=== PATIENT | male | born 1955 | race Caucasian/White ===

== ENCOUNTER 2020-01-18 15:21 | Outpatient (REF) | payer MEDICARE, SELFPAY ==
[2020-01-18 16:33] LABS: Prostate Specific Antigen 0.18 ng/mL (<0.05-4.0)
== END 2020-01-18 15:22 | disposition home or self-care (01) ==
LOC: HO.LAB 15:21
PROVIDERS: PCP Internal Medicine; Visit Provider Urology
DX: C61 Malignant neoplasm of prostate (principal); Z12.5 Encounter for screening for malignant neoplasm of prostate
CPT/HCPCS: 84153

== ENCOUNTER 2020-05-17 13:23 | Outpatient (REF) | payer MEDICARE, SELFPAY ==
[2020-05-17 15:07] LABS: Prostate Specific Antigen 0.27 ng/mL (<0.05-4.0)
== END 2020-05-17 13:24 | disposition home or self-care (01) ==
LOC: HO.LAB 13:23
PROVIDERS: PCP Internal Medicine; Visit Provider Urology
DX: Z12.5 Encounter for screening for malignant neoplasm of prostate (principal); C61 Malignant neoplasm of prostate
CPT/HCPCS: 36415; 84153

== ENCOUNTER 2020-07-11 06:19 | Outpatient (REF) | payer MEDICARE, SELFPAY ==
[2020-07-11 07:33] LABS: MANUAL DIFF FLAG NO
[2020-07-11 07:42] LABS: Basophils Absolute Auto 0.1 X10*3/uL (0.0-0.2); Basophils Percent Auto 0.9 % (0-2); Eosinophils Absolute Auto 0.2 X10*3/uL (0.0-0.4); Eosinophils Percent Auto 3.6 % (0-4); Hematocrit 44.6 % (42-52); Hemoglobin 14.5 g/dl (14.0-18.0); Imm Gran Abs Auto 0.02 X10*3/uL (0.00-0.03); Imm Gran Pct Auto 0.3 % (0.0-0.4); Lymphocytes Absolute Auto 2.2 X10*3/uL (1.2-4.9); Lymphocytes Percent Auto 34.3 % (20-40); Mean Corpuscular HGB Conc 32.5 g/dl (31.0-36.0); Mean Corpuscular Hemoglobin 30.7 pg (27.0-33.0); Mean Corpuscular Volume 94.5 fL (80-98); Mean Platelet Volume 10.1 fL (9.4-12.4); Monocytes Absolute Auto 0.5 X10*3/uL (0.1-1.2); Monocytes Percent Auto 8.1 % (2-11); Neutrophils Absolute Auto 3.3 X10*3/uL (2.0-8.3); Neutrophils Percent Auto 52.8 % (45-73); Platelet Count 230 X10*3/uL (160-400); Red Blood Count 4.72 X10*6/uL (4.60-5.80); White Blood Count 6.3 X10*3/uL (4.8-10.8)
[2020-07-11 07:55] LABS: Alanine Aminotransferase 21 U/L (0-40); Albumin Level 4.1 g/dL (3.5-5.0); Alkaline Phosphatase 65 U/L (39-117); Anion Gap 10 (12-20); Aspartate Amino Transferase 17 U/L (5-37); Bilirubin Total 0.5 mg/dL (0.0-1.0); Blood Urea Nitrogen 18 mg/dL (9-16); Calcium 9.4 mg/dL (8.4-10.2); Carbon Dioxide 28 mmol/L (22-29); Chloride 106 mmol/L (96-108); Cholesterol 232 mg/dL; Estimated Glomerular Filt Rate > 60; Glucose Fasting 99 mg/dL (60-99); HDL Cholesterol 58 mg/dL; LDL Cholesterol Calculated 157 mg/dl; Potassium 4.3 mmol/L (3.3-5.1); Sodium 140 mmol/L (135-145); Total Protein 6.3 g/dL (6.5-8.0); Triglycerides 85 mg/dL
== END 2020-07-11 06:20 | disposition home or self-care (01) ==
LOC: HO.LAB 06:19
PROVIDERS: PCP Internal Medicine; Visit Provider Internal Medicine
DX: E78.00 Pure hypercholesterolemia, unspecified (principal); Z82.49 Family history of ischemic heart disease and other diseases of the circulatory system
CPT/HCPCS: 36415; 80053; 80061; 85025

== ENCOUNTER 2020-08-25 11:05 | Outpatient (REF) | payer MEDICARE, SELFPAY ==
[2020-08-25 13:06] LABS: Prostate Specific Antigen 0.31 ng/mL (<0.05-4.0)
== END 2020-08-25 11:06 | disposition home or self-care (01) ==
LOC: HO.LAB 11:05
PROVIDERS: PCP Internal Medicine; Visit Provider Urology
DX: C61 Malignant neoplasm of prostate (principal)
CPT/HCPCS: 36415; 84153

== ENCOUNTER 2021-03-09 15:08 | Outpatient (REF) | payer MEDICARE, SELFPAY ==
[2021-03-09 16:05] LABS: Prostate Specific Antigen 0.35 ng/mL (<0.05-4.0)
== END 2021-03-09 15:09 | disposition home or self-care (01) ==
LOC: HO.LAB 15:08
PROVIDERS: PCP Internal Medicine; Visit Provider Urology
DX: Z12.5 Encounter for screening for malignant neoplasm of prostate (principal); C61 Malignant neoplasm of prostate
CPT/HCPCS: 36415; 84153

== ENCOUNTER 2021-09-26 14:36 | Outpatient (REF) | payer MEDICARE, SELFPAY ==
[2021-09-26 16:31] LABS: Prostate Specific Antigen 0.44 ng/mL (<0.05-4.0)
== END 2021-09-26 14:37 | disposition home or self-care (01) ==
LOC: HO.LAB 14:36
PROVIDERS: PCP Internal Medicine; Visit Provider Urology
DX: Z12.5 Encounter for screening for malignant neoplasm of prostate (principal); C61 Malignant neoplasm of prostate
CPT/HCPCS: 36415; 84153

== ENCOUNTER 2022-04-05 13:37 | Outpatient (REF) | payer MEDICARE, SELFPAY ==
[2022-04-05 15:46] LABS: Prostate Specific Antigen 0.63 ng/mL (<0.05-4.0)
== END 2022-04-05 13:38 | disposition home or self-care (01) ==
LOC: HO.LAB 13:37
PROVIDERS: PCP Internal Medicine; Visit Provider Urology
DX: Z12.5 Encounter for screening for malignant neoplasm of prostate (principal); C61 Malignant neoplasm of prostate
CPT/HCPCS: 36415; 84153

== ENCOUNTER 2022-07-02 15:36 | Outpatient (REF) | payer MEDICARE, SELFPAY ==
[2022-07-02 17:44] LABS: Prostate Specific Antigen 0.75 ng/mL (<0.05-4.0)
== END 2022-07-02 15:37 | disposition home or self-care (01) ==
LOC: HO.LAB 15:36
PROVIDERS: PCP Internal Medicine; Visit Provider Physician Assistant Surgical
DX: C61 Malignant neoplasm of prostate (principal); Z12.5 Encounter for screening for malignant neoplasm of prostate
CPT/HCPCS: 36415; 84153

== ENCOUNTER 2023-05-15 15:13 | Outpatient (REF) | payer MEDICARE, SELFPAY ==
[2023-05-15 16:25] LABS: Prostate Specific Antigen < 0.10 ng/mL (<0.05-4.0)
== END 2023-05-15 15:14 | disposition home or self-care (01) ==
LOC: HO.LAB 15:13
PROVIDERS: Visit Provider Physician Assistant
DX: Z12.5 Encounter for screening for malignant neoplasm of prostate (principal); C61 Malignant neoplasm of prostate
CPT/HCPCS: 36415; 84153

== ENCOUNTER 2023-09-16 14:33 | Outpatient (REF) | payer MEDICARE, SELFPAY ==
[2023-09-20 15:52] LABS: Testosterone, Total 215 ng/dL (250-1100)
== END 2023-09-16 14:34 | disposition home or self-care (01) ==
LOC: HO.LAB 14:33
PROVIDERS: PCP Internal Medicine; Visit Provider Urology
DX: C61 Malignant neoplasm of prostate (principal)
CPT/HCPCS: 36415; 84403

== ENCOUNTER 2024-03-12 15:22 | Outpatient (REF) | payer MEDICARE, SELFPAY ==
[2024-03-12 17:03] LABS: Prostate Specific Antigen < 0.10 ng/mL (<0.05-4.0)
[2024-03-18 12:08] LABS: Testosterone, Total 374 ng/dL (250-1100)
== END 2024-03-12 15:23 | disposition home or self-care (01) ==
LOC: HO.LAB 15:22
PROVIDERS: PCP Internal Medicine; Visit Provider Urology
DX: C61 Malignant neoplasm of prostate (principal)
CPT/HCPCS: 36415; 84153; 84403

== ENCOUNTER 2024-04-21 08:08 | Day surgery (SDC) | payer MEDICARE, SELFPAY ==
[2024-04-21 09:07] VITALS: BP 163/86; PULSE 65; RESP 14; TEMP 36.9; O2SAT 99; BMI 24.1
[2024-04-21] MEDS: Lactated Ringers 1,000 ML 80 ML IVCONT (09:19)
--- NOTE | 2024-04-21 09:38 | P.CONAN_ITS ---
[facility] Past Medical History Medical History Prostate cancer Surgical History Surgical History History of arthroscopic knee surgery Hx of hernia repair History of prostate surgery H/O colonoscopy History of Problems with Anesthesia: No Social History Social History Are you a primary career guidance technician to a significant other at home: No Patient Tobacco Use Status: Former Tobacco user Use of substances other than those prescribed or required for medical reasons: Yes Substance Use Frequency: Daily Have you been hit, kicked, punched, or otherwise hurt by someone within the past year? If so, by whom?: No Are you DNR?: No Advance Directives: No Advance Directives Information Provided: Yes Recently lost weight without trying: No Nutrition Risks: No Nutritional Risk Poor oral hygiene: No Meds Allergies Allergy/AdvReac Type Severity Reaction Status Date / Time cefoxitin Allergy Hives Verified 04/21/24 09:01 levofloxacin [From Levaquin] Allergy Hives Verified 04/21/24 09:01 Active Medications: Current Medications Lactated Ringer's (Lr) 1,000 mls @ 80 mls/hr IVCONT .[id number] KAIT Last Admin: 04/21/24 09:19 Dose: 80 mls/hr Sodium Biphosphate/Sodium Phosphate (Sodium Phosphate,[place]-Dibasic 133 Ml Enema) 133 ml MI ONCE PRN PRN Reason: Poor Colonoscopy Prep Results Home Medications ?Medication ?Instructions ?Recorded ?Confirmed ?Last Taken ?Type No Known Home Meds 04/20/24 04/20/24 Unknown History Exam Height,Weight and Vital Signs: Height 5 ft 10 in Weight 76.204 kg Last Vital Signs Temp 98.5 F 04/21/24 09:07 Pulse 65 04/21/24 09:07 Resp 14 04/21/24 09:07 BP 163/86 H 04/21/24 09:07 Pulse Ox 99 04/21/24 09:07 O2 Del Method Room Air 04/21/24 09:07 Airway Mallampati Class: III TM Dist: >3cm Neck ROM: Full Loose/Missing/Broken Teeth: No Heart: RRR Lungs: CTA Assessment and Plan Assessment Anesthesia Assessment: Anesthesia Plan Discussed and Chart Reviewed Final Anesthetic Review History of Problems with Anesthesia: No NPO: Yes ASA Class: II Final Preanesthetic Review: Meds/Allgs Chart Reviewed, Consent Obtained/Reviewed and Anes Risks/Benef Reviewed Patient Risk: Low Procedure Risk: Low Anesthetic Plan Anesthetic Plan: MAC: Disposition: Standard PACU
[2024-04-21 10:33] VITALS: BP 148/83; PULSE 53; RESP 18; TEMP 36.2; O2SAT 100
--- NOTE | 2024-04-21 10:42 | P.BOP_ITS ---
Brief Operative Note Date of Service: 04/21/24 Pre-op diagnosis: Screening, diarrhea Post-op diagnosis: other (R/O microscopic colitis, Diverticlosis, Radiation proctitis with Telangiectasias) Procedure: Colonoscopy to the cecum and TI with biopsies Surgeon: Flip Rahman MD Anesthesia: MAC Was an Public Service Representative used for this Procedure?: No Estimated blood loss (mL): 2.0 Pathology: other (A. Ascending colon B. Terminal ileum C. Descending colon) Condition: stable Disposition: PACU
[2024-04-21 10:48] VITALS: BP 154/89; PULSE 53; RESP 18; TEMP 36.1; O2SAT 100
[2024-04-21 11:02] VITALS: BP 157/79; PULSE 53; RESP 18; TEMP 36.1; O2SAT 100
--- NOTE | 2024-04-21 11:53 | OP_ITS ---
DATE OF SERVICE: 04/21/2024 SURGEON: Flip Rahman MD INDICATIONS: The patient presents for evaluation of colorectal cancer screening, personal history of tubular adenomas, and change in bowel habits with associated diarrhea. Full consent has been obtained from him for this, including risks of bleeding and perforation. PREOPERATIVE DIAGNOSIS: POSTOPERATIVE DIAGNOSIS: PROCEDURE PERFORMED: Colonoscopy to the cecum and terminal ileum with biopsies. ESTIMATED BLOOD LOSS: COMPLICATIONS: ANESTHESIA: Medication use, monitored anesthesia care. ASSISTANTS: SPECIMENS: PREOPERATIVE DIAGNOSES: Colorectal cancer screening, personal history of tubular adenoma of the colon, and change in bowel habits with associated diarrhea. POSTOPERATIVE DIAGNOSES: Colorectal cancer screening, personal history of tubular adenoma of the colon, change in bowel habits with associated diarrhea, diverticulosis, internal hemorrhoids, rule out microscopic colitis. DESCRIPTION OF PROCEDURE: The patient was placed in the left lateral decubitus position. The digital rectal exam revealed no abnormalities. The [employer] video pediatric colonoscope was entered into the rectum and advanced easily to the cecum. Once in the cecum, I did identify normal-appearing cecal pouch with appendiceal orifice and a normal-appearing ileocecal valve. The terminal ileum was cannulated and appeared normal. Biopsies were obtained. The scope was withdrawn back in the colon. The entire cecum and ileocecal valve appeared normal, as did the appendiceal orifice. The scope was slowly withdrawn assessing all mucosal surfaces carefully. Preparation was excellent. I did not visualize any sign of colitis, polyps, nor angiodysplasias. Random biopsies were obtained in the ascending and descending colon. There was a moderate amount of sigmoid diverticulosis. In the rectum, there were several nonbleeding telangiectasias consistent with his previous radiation treatments. There was no sign of any active proctitis, although some of the telangiectasias were friable when touched by the scope. The scope was retroflexed visualizing internal hemorrhoids and the telangiectasias but no other pathology. The scope was straightened and withdrawn from the patient. He tolerated the procedure well and was returned to the recovery area in stable condition. IMPRESSION: 1. Rule out microscopic colitis. 2. Radiation proctitis with associated rectal telangiectasias. 3. Internal hemorrhoids. 4. Diverticulosis. PLAN: The results of the biopsies will be checked. Given the previous history of tubular adenoma, I would recommend a followup coloscopy in 5 years. He was advised not to use any aspirin or NSAIDs for at least 2 weeks. When I saw him last week in the office I had recommended a trial of Imodium and I did remind him to do that to see if that gives him some relief of the loose stools. He does report that things are definitely better than when he first had the radiation treatments and I suspect that as time goes on this will hopefully continue to improve. He wii continue Imodium either daily or as needed, and he will then see me in followup. He will call me prior to that if he has any problems. This has been discussed with his . MD ROMEL Garcia/CASSI / [id number] MTDD
== END 2024-04-21 11:20 | disposition home or self-care (01) ==
PROVIDERS: PCP Internal Medicine; Visit Provider Internal Medicine
PROC: 0DJD8ZZ Inspection of Lower Intestinal Tract, Via Natural or Artificial Opening Endoscopic (ICD-10-PCS; CPT 45378; principal; 2024-04-21 09:30)
DX: Z12.11 Encounter for screening for malignant neoplasm of colon (principal); Z86.0101 Personal history of adenomatous and serrated colon polyps; R19.7 Diarrhea, unspecified; K57.30 Diverticulosis of large intestine without perforation or abscess without bleeding; K64.8 Other hemorrhoids; K62.7 Radiation proctitis; Z85.46 Personal history of malignant neoplasm of prostate; Z90.79 Acquired absence of other genital organ(s); Z88.1 Allergy status to other antibiotic agents; Z87.891 Personal history of nicotine dependence; Z98.890 Other specified postprocedural states
CPT/HCPCS: 45380; 88305; J2003; J2704

== ENCOUNTER 2024-09-20 15:20 | Outpatient (REF) | payer MEDICARE, SELFPAY ==
--- OUTSIDE RECORDS SUMMARY | 2024-09-20 15:53 | XMS_ITS | Patient Health Record ---
Author Organization [facility] Address [address] [place] [address] Care Team Providers Care Stage Producer Name Role Phone Mk (RETIRED) Jose IVLLELA Primary Care Provide Flip Walters [phone] Allergies Allergen (clinical drug ingredient) Drug/Non Drug Allergy documented on EMR Reaction Allergy Type Onset Date Status cefoxitin cefOXitin hives Drug Allergy Active Levaquin hives Drug Allergy Active Results Component Value Reference Range Notes Pathology (Not yet reviewed by provider) Interpretation: Performing Lab:[facility], [address] [place] [id number] Notes/Report: Reason For Referral No Information Immunizations Vaccine Route Administration Date Status Comme nts Influenza Unknown 04/10/2018 Refused Influenza Unknown 04/14/2024 Refused Social History Alcohol Screen Question Answer Notes Did you have a drink contain ing alcohol in the past year? Yes How often did you have a dri nk containing alcohol in the past year? Monthly or less (1 point) How many drinks did you have on a typical day when you were drinking in the past year? 1 or 2 drinks (0 point) How often did you have 6 or more drinks on one occasion in the past year? Never (0 point) Points 1 Interpretation Negative Section Notes: Nonsmoker > 10 yrs; occasion al alcohol Nonsmoker > 10 yrs; occasion al alcohol Nonsmoker > 10 yrs; occasion al alcohol Problems Problem Type SNOMED Code ICD Code Onset Dates Problem Status W/U Status Risk Notes Problem 874454721 Encounter for screening for malignant neoplasm of colon (Z12.11) Active confirmed Problem Diarrhea (R19.7) Active confirmed Problem Diverticular disease of colon (583073252) Diverticulosis of large intestine without perforation or abscess without bleeding (K57.30) Active confirmed Problem 998213128 Hx of adenomatou s colonic polyps (Z86.010) Active confirmed Problem 073313548585515 Pre-procedural examination (Z01.818) Active confirmed Vital Signs Temperature 97.3 degrees Fahrenheit 04/14/2024 Height 69.50 in 04/14/2024 Weight 175 lbs 04/14/2024 BMI 25.47 kg/m2 04/14/2024 Encounters Encounter Location Date Provider Diagnosis [facility] [place] [address] [place] [id number] 04/21/2024 Flip Rahman Bowel habit changes R19.4 ; Diverticulosis of large intestine without perforation or abscess without bleeding K57.30 and Other hemorrhoids K64.8 [facility] [address] [place] [address] 04/14/2024 Flip Rahman Diarrhea R19.7 ; Hx of adenomatous colonic polyps Z86.010 and Encounter for screening for malignant neoplasm of colon Z12.11 Assessments Encounter Date Diagnosis (ICD Code) Assessment Notes Treatment Notes Treatment Clinical Notes Section Notes 04/21/2024 Diverticulosis of large intestine without perforation or abscess without bleeding (ICD-10 - K57.30) 04/21/2024 Bowel habit changes (ICD-10 - R19.4) 04/14/2024 Diarrhea (ICD-10 - R19.7) Start some over the counter Imodium for the diarrhea---y ou can start with 1 or 2 up to 4 times a day as needed, or take 1 or 2 every morning to try to make things better the rest of the day, and then use more later in the day as needed Overall, Hannah appears quite well. We did review that his residual change in bowel habits is most likely related to some component of radiation-induce d proctitis. It does sound like things are definitely better than they were during the initial phases of radiation but nonetheless are still somewhat problematic for him. If not for being careful with his diet he thinks the diarrhea would probably still be fairly bad. I have recommended he begin a regimen of some Imodium every morning on a regular basis to see if that can make things better for him during the day. I also advised him to use Imodium on a p.r.n. basis during the day as well. I did recommend a colonoscopy for followup screening in regard to his history of colon polyps and his last colonoscopy being back in 2019. The colonoscopy will also obviously be helpful in regard to diagnosing the cause of his ongoing bowel issues. We did review the rationale for that in regard to colon cancer prevention and/or early detection. Full consent was obtained for this, including risks of bleeding and perforation. The procedure will be done with monitored anesthesia care. I did advise him that depending upon the findings in regard to any signs of proctitis then we may want to start him on a treatment for that with something such as mesalamine suppositories or some type of topical steroid preparation. I did advise him to contact me prior to the procedure if things worsen with the diarrhea. Hannah and his were comfortable with this plan. Thank you again for allowing me to participate in Hannah's care. I shall continue to keep you advised of his progress. 04/14/2024 Hx of adenomatous colonic polyps (ICD-10 - Z86.010) Overall, Hannah appears quite well. We did review that his residual change in bowel habits is most likely related to some component of radiation-induce d proctitis. It does sound like things are definitely better than they were during the initial phases of radiation but nonetheless are still somewhat problematic for him. If not for being careful with his diet he thinks the diarrhea would probably still be fairly bad. I have recommended he begin a regimen of some Imodium every morning on a regular basis to see if that can make things better for him during the day. I also advised him to use Imodium on a p.r.n. basis during the day as well. I did recommend a colonoscopy for followup screening in regard to his history of colon polyps and his last colonoscopy being back in 2019. The colonoscopy will also obviously be helpful in regard to diagnosing the cause of his ongoing bowel issues. We did review the rationale for that in regard to colon cancer prevention and/or early detection. Full consent was obtained for this, including risks of bleeding and perforation. The procedure will be done with monitored anesthesia care. I did advise him that depending upon the findings in regard to any signs of proctitis then we may want to start him on a treatment for that with something such as mesalamine suppositories or some type of topical steroid preparation. I did advise him to contact me prior to the procedure if things worsen with the diarrhea. Hannah and his were comfortable with this plan. Thank you again for allowing me to participate in Hannah's care. I shall continue to keep you advised of his progress. 04/21/2024 Other hemorrhoids (ICD-10 - K64.8) 04/14/2024 Encounter for screening for malignant neoplasm of colon (ICD-10 - Z12.11) Overall, Hannah appears quite well. We did review that his residual change in bowel habits is most likely related to some component of radiation-induce d proctitis. It does sound like things are definitely better than they were during the initial phases of radiation but nonetheless are still somewhat problematic for him. If not for being careful with his diet he thinks the diarrhea would probably still be fairly bad. I have recommended he begin a regimen of some Imodium every morning on a regular basis to see if that can make things better for him during the day. I also advised him to use Imodium on a p.r.n. basis during the day as well. I did recommend a colonoscopy for followup screening in regard to his history of colon polyps and his last colonoscopy being back in 2019. The colonoscopy will also obviously be helpful in regard to diagnosing the cause of his ongoing bowel issues. We did review the rationale for that in regard to colon cancer prevention and/or early detection. Full consent was obtained for this, including risks of bleeding and perforation. The procedure will be done with monitored anesthesia care. I did advise him that depending upon the findings in regard to any signs of proctitis then we may want to start him on a treatment for that with something such as mesalamine suppositories or some type of topical steroid preparation. I did advise him to contact me prior to the procedure if things worsen with the diarrhea. Hannah and his were comfortable with this plan. Thank you again for allowing me to participate in Hannah's care. I shall continue to keep you advised of his progress. Plan Of Treatment Pending Test Test Name Order Date Pathology 04/21/2024 Future Test Test Name Order Date COLONOSCOPY 08/06/2012 COLONOSCOPY 04/10/2018 COLONOSCOPY 04/14/2024 Next Appt Details Provider Name:Flip Curry Lacey , 11/09/2024 09:30:00 AM, [address] [place] [address], [address], [place], [address], Insurance Providers Payer Name Payer Address Payer Phone Subscriber Number Group Number Insured Name Patient Relationship to Insured Coverage Start Date Coverage End Date [facility] [address] [place], [place] [id number] [phone] [id number] HANNAH WEBB Self - patient is the insured Medical (General) History Medical History History ICD Code Colonoscopy 06/04/07 and 11/02 013--small tubular adenomas removed, diverticulosis, and internal hemorrhoids Denies NE,DM,CVA,Lung disease,renal dise ase Negative colonoscopy in 06/2018 Prostate cancer 10/2018--had surgery, then PSA adriana and required treatment with XRT 10/23 Surgical History Surgery Date(Month/Year) Hernia repair as an Prostatectomy 2019 Knee meniscus
== END 2024-09-20 15:21 | disposition home or self-care (01) ==
LOC: HO.LAB 15:20
PROVIDERS: Visit Provider Urology
DX: C61 Malignant neoplasm of prostate (principal)
CPT/HCPCS: 36415; 84403

== ENCOUNTER 2024-09-24 06:46 | Outpatient (REF) | payer MEDICARE, SELFPAY ==
--- OUTSIDE RECORDS SUMMARY | 2024-09-24 06:49 | XMS_ITS | Patient Health Record ---
Author Organization [facility] Address [address] [place] [address] Care Team Providers Care Cardiac Cath Lab Manager Name Role Phone Mk (RETIRED) Jose VILLELA Primary Care Provide Flip Walters [phone] Allergies Allergen (clinical drug ingredient) Drug/Non Drug Allergy documented on EMR Reaction Allergy Type Onset Date Status cefoxitin cefOXitin hives Drug Allergy Active Levaquin hives Drug Allergy Active Results Component Value Reference Range Notes Pathology (Not yet reviewed by provider) Interpretation: Performing Lab:[facility], [address] [place] [id number] Notes/Report: Reason For Referral No Information Immunizations [...] Problem Status W/U Status Risk Notes Problem 879696723 Encounter for screening for malignant neoplasm of colon (Z12.11) Active confirmed Problem Diarrhea (18473111) Diarrhea (R19.7) Active confirmed Problem Diverticulosis o f large intestine without perforation or abscess without bleeding (K57.30) Active confirmed Problem 658706416 Hx of adenomatou s colonic polyps (Z86.010) Active confirmed Problem 120745654917665 Pre-procedural examination (Z01.818) Active confirmed Vital Signs Temperature 97.3 degrees Fahrenheit 04/14/2024 Height 69.50 in 04/14/2024 Weight 175 lbs 04/14/2024 BMI 25.47 kg/m2 04/14/2024 Encounters Encounter Location Date Provider Diagnosis [facility] [place] Out[facility] [address] [place], [place] [phone] 04/21/2024 Flip Rahman Bowel habit changes R19.4 ; Diverticulosis of large intestine without perforation or abscess without bleeding K57.30 and Other hemorrhoids K64.8 [facility] [address] [place] [address] 04/14/2024 Flip Rahman Diarrhea R19.7 ; Hx [...] 04/14/2024 Next Appt Details Provider Name:Flip Curry Rahman , 11/09/2024 09:30:00 AM, [address] [place] [address], [address], [place], [address], Insurance Providers Payer Name Payer Address Payer Phone Subscriber Number Group Number Insured Name Patient Relationship to Insured Coverage Start Date Coverage End Date [facility] [address] [place], [place] [id number] [phone] [id number] HANNAH WEBB Self - patient is the insured Medical (General) History Medical History History ICD Code Colonoscopy 06/04/07 and 11/02 013--small tubular adenomas removed, diverticulosis, and internal hemorrhoids Denies HI,DM,CVA,Lung disease,renal dise ase Negative colonoscopy in 06/2018 Prostate cancer 10/2018--had surgery, then PSA adriana and required treatment with XRT 10/23 Surgical History Surgery Date(Month/Year) Hernia repair as an Prostatectomy 2018 Knee meniscus
[2024-09-24 08:31] LABS: Prostate Specific Antigen < 0.10 ng/mL (<0.05-4.0)
== END 2024-09-24 06:47 | disposition home or self-care (01) ==
LOC: HO.LAB 06:46
PROVIDERS: PCP Internal Medicine; Visit Provider Urology
DX: C61 Malignant neoplasm of prostate (principal)
CPT/HCPCS: 36415; 84153